=== PATIENT | male | born 1995 | race Caucasian/White ===

== ENCOUNTER 2019-08-24 23:20 | Emergency (ER) | payer OTHER, SELFPAY ==
[2019-08-24] MEDS ORDERED: ONDANSETRON 4 MG/2 ML VIAL ONE (23:45)
[2019-08-24] MEDS ORDERED: NA CHLORIDE 0.9% 1,000 ML ONE (23:45)
[2019-08-25] MEDS ORDERED: ASPIRIN 81 MG CHEWABLE TABLET ONE (00:09)
[2019-08-25 00:27] LABS: Absolute Lymphocytes (CBC) 1.4 K/uL (0.7-4.9); Basophils % 0.6 % (0-1.3); Hematocrit 40.6 % (39.6-49.0); Lymphocytes % 13.8 % (15.3-44.8); MPV 7.6 fL (7.6-11.3); RBC Red Blood Cell Count 4.46 M/uL (4.33-5.43)
[2019-08-25] MEDS ORDERED: ENOXAPARIN 80 MG/0.8 ML SQ ONE (00:37)
--- NOTE | 2019-08-25 00:37 | ER ---
Nurse's Notes [facility] Name: Jaron Rodriguez Age: 24 yrs Sex: Male : 1995 Arrival Date: 08/24/2019 Time: 23:23 Bed 14 Private MD: Diagnosis: Acute Coronary Syndrome;Cocaine abuse Presentation: 08/24 23:31 Presenting complaint: Patient states: I used cocaine earlier today, now I feel weak. i rv have diarrhea and vomiting for like 2-3 times today. I don't usually get this kind of sick, but today this is not normal to me. denies abdominal pain. Transition of care: patient was not received from another setting of care. Onset of symptoms was August 24, 2019 at 17:00. Risk Assessment: Do you want to hurt yourself or someone else? Patient reports no desire to harm self or others. Initial Sepsis Screen: Does the patient meet any 2 criteria? No. Patient's initial sepsis screen is negative. Does the patient have a suspected source of infection? No. Patient's initial sepsis screen is negative. Care prior to arrival: None. 23:31 Method Of Arrival: Ambulatory rv 23:31 Acuity: WEST 5 rv 23:50 Acuity: WEST 3 iw Triage Assessment: 23:35 General: Appears in no apparent distress. Behavior is calm, cooperative. Pain: Denies rv pain. Neuro: Level of Consciousness is awake, alert, obeys commands, Oriented to person, place, time, situation. Cardiovascular: Patient's skin is warm and dry. Respiratory: Airway is patent. GI: Reports anorexia, diarrhea, nausea, vomiting. Historical: - Allergies: 23:35 No Known Allergies; rv - Home Meds: 23:35 None [Active]; rv - PMHx: 23:35 None; rv - PSHx: 23:35 None; rv - Immunization history:: Adult Immunizations not up to date. - Social history:: Smoking status: Patient uses tobacco products, smokes one pack cigarettes per day. - Ebola Screening: : No symptoms or risks identified at this time. Screenin:37 Abuse screen: Denies threats or abuse. Denies injuries from another. Nutritional rv screening: No deficits noted. Tuberculosis screening: No symptoms or risk factors identified. Fall Risk None identified. Assessment: 08/25 00:09 Reassessment: see triage notes. Reassessment: Ad Padilla went to talked to the patient rv and decided to do work up. EKG was done and referred the results to Ad Padilla. 00:26 Reassessment: patient updated by Ad Padilla regarding the results of diagnostics and rv plan of care. patient understood. Vital Signs: 08/24 23:34 BP 117 / 92; Pulse 81; Resp 16; Temp 98.4; Pulse Ox 100% ; Weight 81.65 kg; Height 5 rv ft. 9 in. (175.26 cm); Pain 0/10; 08/25 00:30 BP 125 / 81; Pulse 76; Resp 16; Pulse Ox 100% on R/A; rv 01:00 BP 127 / 75; Pulse 75; Resp 17; Pulse Ox 100% on R/A; rv 08/24 23:34 Body Mass Index 26.58 (81.65 kg, 175.26 cm) rv ED Course: 08/24 23:23 Patient arrived in ED. ds1 23:25 Darnell Montoya RN is Primary Nurse. rv 23:28 Ad Padilla PA is PHCP. cp 23:28 Berhane Schwartz MD is Attending Physician. cp 23:34 Triage completed. rv 23:36 Arm band placed on Patient placed Patient notified of wait time. rv 23:37 Patient has correct armband on for positive identification. Bed in low position. Call rv light in reach. Pulse ox on. NIBP on. 08/25 00:01 Inserted saline lock: 20 gauge in left antecubital area, using aseptic technique. Blood rv collected. 00:01 No provider procedures requiring assistance completed. Initial lab(s) drawn, by me, rv sent to lab. EKG done, by ED staff. 01:10 Patient transferred, IV remains in place. rv Administered Medications: 00:04 Drug: NS 0.9% 1000 ml Route: IV; Rate: 1 bolus; Site: left antecubital; rv 00:37 Follow up: IV Status: Completed infusion; IV Intake: 1000ml rv 00:04 Drug: Zofran 4 mg Route: IVP; Site: left antecubital; rv 00:37 Follow up: Response: No adverse reaction rv 00:08 Drug: Aspirin Chewable Tablet 324 mg Route: PO; rv 00:37 Follow up: Response: No adverse reaction rv 00:36 Drug: Lovenox 1 mg/kg Route: Sub-Q; Site: abdomen; rv 01:10 Follow up: Response: No adverse reaction rv Intake: 00:37 IV: 1000ml; Total: 1000ml. rv Outcome: 00:36 ER care complete, transfer ordered by . john 01:09 Transferred by ground EMS to [facility], Transfer form completed. rv X-rays sent w/ patient. 01:09 Condition: stable 01:09 Instructed on the need for admit. 01:26 Patient left the ED. rv Signatures: Tg Carmona ds1 Pao Jordan RN RN iw Ad Padilla PA PA cp Darnell Montoya, RN RN rv
--- NOTE | 2019-08-25 00:37 | EDPHYS ---
Physician Documentation [facility] Name: Jaron Rodriguez Age: 24 yrs Sex: Male : 1995 Arrival Date: 08/24/2019 Time: 23:23 Bed 14 Private MD: ED Physician Berhane Schwartz HPI: 08/24 23:35 This 24 yrs old Male presents to ER via Ambulatory with complaints of cp Diarrhea, Dizziness. 23:35 The patient presents to the emergency department with vomiting, that is intermittent, cp diarrhea, that is intermittent. Onset: The symptoms/episode began/occurred today. Associated signs and symptoms: Pertinent positives: dizziness, Pertinent negatives: abdominal pain, fever, chest pain. Severity of symptoms: in the emergency department the symptoms are unchanged despite home interventions. 23:35 Patient reports injecting cocaine earlier today about 1200 and reports noticing heart cp racing and chest pain at the time. Patient denies any chest or abdominal pain. Historical: - Allergies: 23:35 No Known Allergies; rv - Home Meds: 23:35 None [Active]; rv - PMHx: 23:35 None; rv - PSHx: 23:35 None; rv - Immunization history:: Adult Immunizations not up to date. - Social history:: Smoking status: Patient uses tobacco products, smokes one pack cigarettes per day. - Ebola Screening: : No symptoms or risks identified at this time. ROS: 23:40 Constitutional: Negative for body aches, chills, fever, poor PO intake. cp 23:40 Eyes: Negative for injury, pain, redness, and discharge. cp 23:40 ENT: Negative for drainage from ear(s), ear pain, sore throat, difficulty swallowing, difficulty handling secretions. 23:40 Cardiovascular: Negative for chest pain, edema, palpitations. 23:40 Respiratory: Negative for cough, shortness of breath, wheezing. 23:40 Abdomen/GI: Positive for vomiting, diarrhea, Negative for abdominal pain, constipation, anorexia, black/tarry stool, rectal bleeding. 23:40 Skin: Negative for rash. 23:40 Neuro: Positive for dizziness, weakness, Negative for altered mental status, headache, numbness, syncope. 23:40 All other systems are negative. Exam: 23:50 Constitutional: The patient appears in no acute distress, alert, awake, comfortable, cp non-diaphoretic, well developed, well nourished. 23:50 Head/Face: Normocephalic, atraumatic. cp 23:50 Eyes: Pupils equal round and reactive to light, extra-ocular motions intact. Lids and lashes normal. Conjunctiva and sclera are non-icteric and not injected. Cornea within normal limits. Periorbital areas with no swelling, redness, or edema. ENT: Nares patent. No nasal discharge, no septal abnormalities noted. Tympanic membranes are normal and external auditory canals are clear. Oropharynx with no redness, swelling, or masses, exudates, or evidence of obstruction, uvula midline. Mucous membranes moist. Chest/axilla: Normal chest wall appearance and motion. Nontender with no deformity. No lesions are appreciated. 23:50 Cardiovascular: Rate: normal, Rhythm: regular, Heart sounds: murmur, not appreciated, rub, not appreciated, Edema: is not appreciated, JVD: is not appreciated. 23:50 Respiratory: the patient does not display signs of respiratory distress, Respirations: normal, no use of accessory muscles, no retractions, no splinting, no tachypnea, labored breathing, is not present, Breath sounds: are clear throughout, no decreased breath sounds, no stridor, no wheezing. 23:50 Abdomen/GI: Inspection: abdomen appears normal, Bowel sounds: active, all quadrants, Palpation: abdomen is soft and non-tender, in all quadrants. 23:50 Back: pain, is absent, ROM is normal. 23:50 Skin: no rash present. 23:50 Neuro: Orientation: to person, place \T\ time. Mentation: is normal, Cerebellar function: is grossly normal, Motor: moves all fours, strength is normal, Sensation: is normal. 23:55 ECG was reviewed by the Attending Physician. cp Vital Signs: 23:34 BP 117 / 92; Pulse 81; Resp 16; Temp 98.4; Pulse Ox 100% ; Weight 81.65 kg; Height 5 rv ft. 9 in. (175.26 cm); Pain 0/10; 08/25 00:30 BP 125 / 81; Pulse 76; Resp 16; Pulse Ox 100% on R/A; rv 01:00 BP 127 / 75; Pulse 75; Resp 17; Pulse Ox 100% on R/A; rv 08/24 23:34 Body Mass Index 26.58 (81.65 kg, 175.26 cm) rv MDM: 08/24 23:29 Patient medically screened. 08/25 00:10 Physician consultation: Ke Edwards MD was called at 00:15, was contacted at 00:08, regarding consult, patient's condition, after a discussion of the case, a recommendation for transfer for higher level of care is made, no chemical laboratory scientist available. 00:35 Data reviewed: vital signs, nurses notes, EKG, I have discussed the patient's cp presentation/case with the attending Emergency Department Physician;. 00:35 Physician consultation: DR Alexandre, hospitalist \T\[facility], will cp accept patient as transfer. 08/24 23:42 Order name: Basic Metabolic Panel; Complete Time: 01:25 cp 08/25 01:25 Interpretation: Normal except: K 3.2. 08/24 23:42 Order name: CBC with Diff; Complete Time: :25 cp 08/25 01:25 Interpretation: Normal except: THANIA% 75.0; LYM% 13.8. 08/24 23:42 Order name: Creatinine for Radiology; Complete Time: 01:25 cp 08/24 23:42 Order name: Hepatic Function; Complete Time: 01:25 cp 08/24 23:42 Order name: Lipase; Complete Time: 01:25 cp 08/24 23:42 Order name: Troponin I; Complete Time: 01:25 cp 08/25 01:26 Interpretation: Within normal limits. 08/24 23:42 Order name: Magnesium; Complete Time: :25 cp 08/24 23:56 Order name: UDS; Complete Time: 01:25 cp 08/25 01:26 Interpretation: Reviewed. 08/25 00:02 Order name: NT PRO-BNP; Complete Time: 01:25 EDMS 08/25 00:43 Order name: Urine Dipstick--Ancillary (enter results); Complete Time: 01:25 ar5 08/24 23:42 Order name: EKG; Complete Time: 23:42 cp 08/24 23:42 Order name: EKG - Nurse/Tech; Complete Time: 00:12 cp 08/24 23:42 Order name: IV Saline Lock; Complete Time: 00:11 cp 08/24 23:42 Order name: Labs collected and sent; Complete Time: 00:11 cp EC/15 23:55 Rate is 69 beats/min. Rhythm is regular. MD interval is normal. QRS interval is normal. cp QT interval is normal. T waves are Inverted in leads III, aVR. ST Segment is elevated in leads V2, V3. ST Segment is depressed in leads III, aVF. Interpreted by me. Reviewed by me. Administered Medications: 08/25 00:04 Drug: NS 0.9% 1000 ml Route: IV; Rate: 1 bolus; Site: left antecubital; rv 00:37 Follow up: IV Status: Completed infusion; IV Intake: 1000ml rv 00:04 Drug: Zofran 4 mg Route: IVP; Site: left antecubital; rv 00:37 Follow up: Response: No adverse reaction rv 00:08 Drug: Aspirin Chewable Tablet 324 mg Route: PO; rv 00:37 Follow up: Response: No adverse reaction rv 00:36 Drug: Lovenox 1 mg/kg Route: Sub-Q; Site: abdomen; rv 01:10 Follow up: Response: No adverse reaction rv Disposition: 06:23 Co-signature as Attending Physician, Berhane Schwartz MD I agree with the assessment and [facility] plan of care. Disposition: 08/25/19 00:36 Transfer ordered to [facility]. Diagnosis are Acute Coronary Syndrome, Cocaine abuse. - Reason for transfer: Higher level of care. - Accepting physician is Doctor. - Condition is Stable. - Problem is new. - Symptoms have improved. Signatures: Dispatcher [employer] EDME Ad Padilla PA PA cp Wadley, Terrence, MD MD 4 Darnell Montoya RN RN rv Corrections: (The following items were deleted from the chart) 00:01 08/24 23:56 PROBNP+C.LAB.BRZ ordered. [facility] EDME 08/25 01:26 00:36 08/25/2019 00:36 Transfer ordered to [facility]. Diagnosis is rv Acute Coronary Syndrome; Cocaine abuse. Reason for transfer: Higher level of care. Accepting physician is Doctor. Condition is Stable. Problem is new. Symptoms have improved. cp
[2019-08-25 00:39] LABS: ALT/SGPT 25 U/L (12-78); AST/SGOT 17 U/L (15-37); Alkaline Phosphatase 81 U/L (45-117); BUN Blood Urea Nitrogen 9 mg/dL (7-18); Bicarbonate 26 mmol/L (21-32); Bilirubin Direct 0.2 mg/dL (0-0.2); Bilirubin Total 0.6 mg/dL (0.2-1.0); Glucose Level 77 mg/dL (74-106); Lipase 75 U/L (73-393); Magnesium 1.9 mg/dL (1.8-2.4); NT PRO-BNP 35 pg/mL (<125); Potassium 3.2 mmol/L (3.5-5.1); Protein, Total 7.2 g/dL (6.4-8.2); Sodium Level 138 mmol/L (136-145); Troponin I < 0.02 ng/mL (0.0-0.045)
[2019-08-25 01:18] LABS: Barbiturates NEGATIVE (NEGATIVE); Benzodiazepines NEGATIVE (NEGATIVE); Cocaine POSITIVE (NEGATIVE); METHAMPHETAM NEGATIVE (NEGATIVE); Methadone NEGATIVE (NEGATIVE); Opiates NEGATIVE (NEGATIVE); Phencyclidine NEGATIVE (NEGATIVE); THC Cannibis NEGATIVE (NEGATIVE)
[2019-08-25 01:19] LABS: Urine Blood NEGATIVE (NEG); Urine Glucose NEGATIVE (NEG); Urine Protein NEGATIVE (NEG); Urine pH 5.5 (5.0-7.0)
[2019-08-25 03:15] VITALS: TEMP 98.4; O2SAT 100
[2019-08-25 03:17] VITALS: BP 127/75
--- NOTE | 2019-08-25 10:59 | EKG ---
Test Date: 2019-08-24 Test Time: 23:47:32 Supervisor [employer]: RV MEASUREMENT RESULTS: Intervals: Rate: 69 IL: 130 QRSD: 84 QT: 384 QTc: 411 [place]: P: 50 IL: 130 QRS: 61 T: 2 INTERPRETIVE STATEMENTS: Normal sinus rhythm ST elevation, consider lateral injury or acute infarct ACUTE FL / STEMI Abnormal ECG No previous ECG available for comparison Electronically Signed On 08-25-19 10:58:15 [employer] MANAGER by Shahriar Crane
== END 2019-08-25 01:26 | disposition short-term general hospital (02) ==
LOC: ER 23:20
DX: I24.9 Acute ischemic heart disease, unspecified (principal); F14.10 Cocaine abuse, uncomplicated; F17.210 Nicotine dependence, cigarettes, uncomplicated
CPT/HCPCS: 36415; 80048; 80076; 80307; 81003; 83690; 83735; 83880; 84484; 85025; 93005; 96361; 96372; 96374; 99285; J1650; J2405; J7030